=== PATIENT | male | born 1985 | race Caucasian/White ===

== ENCOUNTER 2019-02-07 15:17 | Emergency (ER) | payer OTHER ==
[~2019-02-07] VITALS: Ht 175.3 cm; Wt 63.5 kg
[2019-02-07 15:23] VITALS: BP 133/83
--- NOTE | 2019-02-07 15:24 | NUR ---
PT AMBULATED TO CHAIR WITH ANTELMO MEDINA #[id number]
--- NOTE | 2019-02-07 15:37 | NUR ---
PT MOVED TO BED 5, ENVIRONMENT CHECKED AND SET UP FOR SAFETY, PT CHANGED INTO GOWN, ALL BELONGINGS CHECKED AND SENT WITH SECURITY. 1:1 SITTER AT BEDSIDE WITH CLOSE MONITORING
[2019-02-07] MEDS ORDERED: OLANZapine 5 MG ODT SL ONE (15:40)
--- NOTE | 2019-02-07 15:50 | NUR ---
DELMI RODRIGES #391 FOR PREBOOK. PER PD, PT WAS FOUND IN FRONT OF RESTAURANT JUMPING AND YELLING SUSPICION FOR METH USE. PT WITH L FOREARM WOUNDS. PT ALSO C/O SI. MOMO MOTA TO WRITE 8280 HOLD. PATIENT STATES PAIN OF 0/10 AT THIS TIME; VSS; PATIENT POSITIONED FOR COMFORT; HOB ELEVATED; BEDRAILS UP X1; BED DOWN. YAYO ROBISON MADE AWARE OF PT STATUS. Addendum: 02/07/19 at 1703 by MEDHR 1:1 SITTER IS AT BEDSIDE.
[2019-02-07 16:14] LABS: BASOPHILS % (AUTO) 0.5 % (0.0-2.0); EOSINOPHILS # (AUTO) 0.4 K/uL (0-0.4); EOSINOPHILS % (AUTO) 4.6 % (0.0-4.0); LYMPHOCYTES # (AUTO) 1.5 K/uL (2.0-11.5); LYMPHOCYTES % (AUTO) 19.3 % (20.5-51.1); MEAN CORPUSCULAR HEMOGLOBIN 29 pg (27-31); MEAN CORPUSCULAR HGB CONC 33 g/dL (33-37); MEAN CORPUSCULAR VOLUME 87.7 fL (80-94); MONOCYTES # (AUTO) 0.8 K/uL (0.8-1.0); MONOCYTES % (AUTO) 10.5 % (1.7-9.3); NEUTROPHILS # (AUTO) 5.1 K/uL (1.8-7.7); NEUTROPHILS % (AUTO) 65.1 % (42.2-75.2); PLATELET COUNT (AUTO) 424 K/uL (140-450); RED BLOOD CELL COUNT(AUTO) 4.22 MIL/uL (4.20-6.10); RED CELL DISTRIBUTION WIDTH 15.2 % (11.6-13.7); WHITE BLOOD COUNT (AUTO) 7.8 K/uL (4.8-10.8)
[2019-02-07 16:31] LABS: ANION GAP 11.4 (8-16); CARBON DIOXIDE 28.5 mmol/L (21-32); CHLORIDE 105 mmol/L (98-107); CREATININE 0.8 mg/dL (0.7-1.3); GFR ARICAN-AMERICAN 144 mL/min (>90); GLUCOSE 90 mg/dL (74-106); POTASSIUM 3.9 mmol/L (3.5-5.1); SODIUM SERUM 141 mmol/L (136-145); UREA NITROGEN, BLOOD 15 mg/dL (7-18)
--- NOTE | 2019-02-07 16:32 | NUR ---
COMPLETED SUICIDE SEVERITY SCALE. PT STATES HE ALWAYS HAS A PLAN OF KILLING HIMSELF AND HE HAS TRIED TO KILL HIMSELF BY HANGING TWICE. HE STATES BEING HOMELESS AND NO PERSON CAN HELP HIM.
[2019-02-07 16:39] LABS: ACETAMINOPHEN < 0.5 ug/ml (10-30); ALBUMIN 3.3 g/dL (3.4-5.0); ASPARTATE AMINOTRANSFERASE 31 U/L (15-37); SALICYLATE 2.8 mg/dL (2.8-20.0); TOTAL BILIRUBIN 0.3 mg/dL (0.0-1.0)
[2019-02-07 17:14] LABS: APPEARANCE,URINE CLEAR (CLEAR); BILIRUBIN,URINE 1+ (NEGATIVE); BLOOD, URINE NEGATIVE (NEGATIVE); COLOR,URINE YELLOW (YELLOW); LEUKOCYTE ESTERASE ,URINE NEGATIVE (NEGATIVE); NITRITE, URINE NEGATIVE (NEGATIVE); UGLUCOSE NEGATIVE (NEGATIVE)
--- NOTE | 2019-02-07 17:24 | NUR ---
PT REFUSED TO EAT AT THIS TIME.
[2019-02-07 17:27] LABS: CALCIUM OXALATE CRYSTALS,UR 0-10 /HPF (None Seen); HYALINE CASTS, URINE 0-10 /LPF (None Seen); RBC,URINE 0 /HPF (0-5); WBC,URINE 0-5 /HPF (0-5)
--- NOTE | 2019-02-07 17:45 | NUR ---
PT IS SLEEPING IN BED CALMLY.
[2019-02-07 17:52] LABS: BARBITURATE, URINE NEG. ng/ml (NEG <=200); BENZODIAZEPINE, URINE NEG. ng/mL (NEG <=200); CANNABINOID, URINE POS. ng/mL (NEG <=50); COCAINE, URINE NEG. ng/mL (NEG <=300); OPIATE, URINE NEG. ng/mL (NEG <=2000); PHENCYCLIDINE SCREEN,URINE NEG. ng/mL (NEG <=25)
--- NOTE | 2019-02-07 18:50 | NUR ---
PSYCHAITRIST IS EVALUATING PT THROUGH TELEPSYCH.
--- NOTE | 2019-02-07 19:21 | NUR ---
RECEIVED REPORT FROM DAY SHIFT RN. NO ACUTE DISTRESS. PT AROUSABLE, SAFETY PRECAUTIONS IN PLACE. SITTER @ BEDSIDE.
--- NOTE | 2019-02-07 22:05 | NUR ---
Spoke to Sneha from [facility]. She states pt has a remoark on his record stating he is conserved and possibly by the court. Need social security assessor to find out if he is conserved, Notify the conservater, and fax the info to [facility] before he can be transfered. Pt gave name of board and care. [facility] in [place].
--- NOTE | 2019-02-08 | NUR ---
PT HAS EYES CLOSED AROUSABLE, DENIES SUICIDAL IDEATION. PT REQUESTING CRACKERS/MILK. VSS. WILL CONTINUE TO OBSERVE
--- NOTE | 2019-02-08 03:21 | NUR ---
PT PROVIDED WITH SNACKS. ALL NEEDS MET AT THIS TIME.
--- NOTE | 2019-02-08 06:33 | NUR ---
PT AROUSABLE TO NAME DENIES PAIN @ THIS TIME. WILL CONTINUE TO OBSERVE
--- NOTE | 2019-02-08 07:19 | NUR ---
REPORT GIVEN TO DAY SHIFT RN FOR CONTINUITY OF CARE
--- NOTE | 2019-02-08 07:20 | NUR ---
BEDSIDE REPORT RECEIVED FROM MIGUEL CLAROS FOR CONTINUATION OF CARE.
--- NOTE | 2019-02-08 07:55 | NUR ---
PT AWAKE AND EATING BREAKFAST
--- NOTE | 2019-02-08 09:22 | NUR ---
Rc tejada in EDM - 02/08/19 at 0925 by MED1 PT ASLEEP IN BED, AROUSABLE TO VERBAL STIMULI. SAFTEY PRECAUTIONS IN PLACE, ALL CORDS/TRASCHCANS & PT BELONGINGS REMAIN REMOVED FROM THE ROOM
--- NOTE | 2019-02-08 09:22 | NUR ---
PT ASLEEP IN BED, AROUSABLE TO VERBAL STIMULI. SAFTEY PRECAUTIONS IN PLACE, ALL CORDS/TRASCHCANS & PT BELONGINGS REMAIN REMOVED FROM THE ROOM. 1:1 SITTER AT BEDSIDE
--- NOTE | 2019-02-08 09:30 | NUR ---
SPOKE WITH YIFAN FROM [facility] REGARDING PT PLACEMENT STATUS. YIFAN TO FOLLOW UP WITH CONSERVATOR OFFICE TO CONFIRM IF PATIENT IS A CONSERVATOR OF THE STATE.
--- NOTE | 2019-02-08 09:35 | NUR ---
Contacted the following county's public guardian's offices to confirm if pt is conserved or not: [facility]: s/w Nara, states they do not have pt on file, pt not conserved through their county. [facility]: s/w Josy, states pt not on file, not conserved through their county [facility]: s/w Shawna, states that pt was previously conserved in their county but is no longer. [facility]: s/w Mary Kate , states pt not in their system, not conserved through their county. Based on this information, is not currenyly conserved, will begin looking for placement based on this info. Er notified.
--- NOTE | 2019-02-08 09:36 | NUR ---
Per Ghulam at the [facility] [place], the patient is not conserved. Ghulam will begin looking for psychiatric placement at this time.
--- NOTE | 2019-02-08 09:48 | NUR ---
Spoke with Radha RIVERA and requested she send full copy of [id number] hold so [facility] can send packets out to surrounding facilities for review
--- NOTE | 2019-02-08 10:05 | NUR ---
Packet has been faxed to the [facility] facilities: [facility]
--- NOTE | 2019-02-08 11:11 | NUR ---
PT RESTING IN BED, DENIES ANY NEW NEEDS/REQUESTS AT THIS TIME
--- NOTE | 2019-02-08 11:24 | NUR ---
REPORT GIVEN TO KRYSTLE AT [facility] VIA PHONE. ALL QUESTIONS ANSWERED. ACCEPTING DR IS DR JOHNSON AT [facility].
--- NOTE | 2019-02-08 12:08 | NUR ---
[facility] at bedside for transport to [facility].
--- NOTE | 2019-02-08 12:15 | NUR ---
Patient to be transferred to [facility]. Is being transferred due to HOLD. Receiving facility has accepting physician and available space. ER physician has signed transfer form. Patient or responsible alliance party has agreed to transfer and signed form. Patient belongings inventoried and will be sent with patient. Copy of nursing notes, lab reports, EKG, Physicians Orders and X-rays to be sent with patient. Report called to MIGUEL DALTON at receiving facility. [facility]SPORT LEFT THE FACILITY WITH PATIENT.
[2019-02-08 12:22] VITALS: BP 117/65
== END 2019-02-08 12:15 ==
LOC: MED 15:17
DX: R45.851 Suicidal ideations (principal); Z91.14 Patient's other noncompliance with medication regimen
CPT/HCPCS: 36415; 80053; 80305; 81001; 85025; 99283; G0480; G0482